=== PATIENT | female | born 1995 | race Caucasian/White ===

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

== ENCOUNTER 2017-03-29 06:42 | Emergency (ER) | payer OTHER ==
[~2017-03-29] VITALS: Ht 162.6 cm; Wt 47.8 kg
[~2017-03-29 06:42] MED LIST: FLUO20CA19 PO
[2017-03-29] MEDS ORDERED: SODIUM CHLORIDE FLUSH 10ML SYR IVF ONE (07:30)
[2017-03-29] MEDS ORDERED: SODIUM CHLORIDE 0.9% 1,000ML IVBOLUS ONE (07:30)
[2017-03-29] MEDS ORDERED: ALBUTEROL/IPRATROPIUM 2.5MG/0.5MG, 3 ML NPPB ONE (07:30)
[2017-03-29] MEDS ORDERED: ALBUTEROL/IPRATROPIUM 2.5MG/0.5MG, 3 ML ONE (07:38)
[2017-03-29 07:44] LABS: HEMATOCRIT 42.1 % (34.6-47.8); WHITE BLOOD COUNT 11.2 x10^3/uL (4.5-13.2)
[2017-03-29 07:56] LABS: BLOOD UREA NITROGEN 6 mg/dL (7-18)
[2017-03-29 07:57] LABS: RAPID INFLUENZA A Negative (Negative); RAPID INFLUENZA B Negative (Negative)
[2017-03-29] MEDS ORDERED: ACETAMINOPHEN 325 MG TABLET ONE (08:13)
[2017-03-29] MEDS ORDERED: ACETAMINOPHEN 325 MG TABLET PO ONE (08:30)
[2017-03-29 09:09] VITALS: BP 94/58
== END 2017-03-29 09:12 | disposition home or self-care (01) ==
LOC: ED 07:15
DX: R06.00 Dyspnea, unspecified (principal); J20.8 Acute bronchitis due to other specified organisms; J45.909 Unspecified asthma, uncomplicated
CPT/HCPCS: 36415; 71020; 80048; 82040; 83605; 84145; 85025; 85379; 87040; 87400; 93005; 94640; 96360; 96361; 99285; J7030; J7620

== ENCOUNTER 2019-12-02 20:45 | Emergency (ER) | payer OTHER ==
[~2019-12-02] VITALS: Ht 162.6 cm; Wt 48.0 kg
[2019-12-02 20:51] VITALS: BP 116/79
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
--- NOTE | 2019-12-02 21:24 | NUR ---
PA AT BEDSIDE FOR ASSESSMENT AT THIS TIME
--- NOTE | 2019-12-02 22:05 | NUR ---
PER DR. SWEET PT NO LONGER ON LEGAL HOLD ABLE TO DC HOME
--- NOTE | 2019-12-02 22:11 | NUR ---
Patient/Caregiver given discharge instructions and they have confirmed that they understand the instructions. Patient ambulatory with steady gait.
== END 2019-12-02 22:13 | disposition home or self-care (01) ==
LOC: ED 22:00
DX: F10.129 Alcohol abuse with intoxication, unspecified (principal); F41.9 Anxiety disorder, unspecified; Y90.9 Presence of alcohol in blood, level not specified
CPT/HCPCS: 99283

== ENCOUNTER 2021-01-16 09:48 | Emergency (ER) | payer OTHER, MEDICAID ==
[~2021-01-16] VITALS: Ht 165.1 cm; Wt 48.3 kg
--- NOTE | 2021-01-16 10:31 | NUR ---
SECY: PT TO ROOM FROM [facility]
--- NOTE | 2021-01-16 10:53 | NUR ---
PT BROUGHT BACK FROM TRIAGE WITH CHIEF COMPLAINT OF ABD PAIN SINCE FRIDAY
[2021-01-16] MEDS ORDERED: SODIUM CHLORIDE 0.9% 1,000ML IVBOLUS ONE (11:30)
[2021-01-16] MEDS ORDERED: ONDANSETRON 2MG/ML, 2ML IVPush ONE (11:30)
[2021-01-16] MEDS ORDERED: SODIUM CHLORIDE FLUSH 10ML SYR IVF ONE (11:30)
[2021-01-16 11:45] LABS: BASOPHILS % (AUTO) 0 % (0-1); EOSINOPHILS % (AUTO) 1 % (1-7); LYMPHOCYTES % (AUTO) 34 % (22-44); MEAN CORPUSCULAR HGB CONC 33.2 g/dL (32.4-35.8); MEAN PLATELET VOLUME 9.4 fL (7.4-10.4); MONOCYTES % (AUTO) 11 % (2-9); NEUTROPHILS % (AUTO) 55 % (42-75); PLATELET COUNT 199 x10^3/uL (130-400); RED BLOOD COUNT 4.77 x10^6/uL (3.82-5.3)
[2021-01-16] MEDS ORDERED: ONDANSETRON 2MG/ML, 2ML ONE (11:47)
[2021-01-16 11:55] LABS: ALANINE AMINOTRANSFERASE 14 U/L (12-78); ALBUMIN 3.9 g/dL (3.4-5.0); ANION GAP 7 mmol/L (5-15); CALCIUM 8.8 mg/dL (8.5-10.1); CHLORIDE 109 mmol/L (98-107)
--- NOTE | 2021-01-16 11:58 | NUR ---
Pt to US
[2021-01-16 12:00] LABS: ALKALINE PHOSPHATASE 80 U/L (45-117); BILIRUBIN,TOTAL 3.4 mg/dL (0.2-1.0); CREATININE 0.73 mg/dL (0.55-1.02); TOTAL PROTEIN 7.3 g/dL (6.4-8.2)
[2021-01-16 12:09] LABS: MICROSCOPIC AUTO
--- NOTE | 2021-01-16 12:57 | NUR ---
PORSHA at [facility] to discuss poc
[2021-01-16] MEDS ORDERED: OMNIPAQUE 350 MG/ML, 100ML BOTTLE ONE (13:54)
--- NOTE | 2021-01-16 14:03 | NUR ---
PT BACK FROM IMAGING, RESTING IN BED
[2021-01-16 14:56] VITALS: BP 114/62
== END 2021-01-16 14:58 | disposition home or self-care (01) ==
LOC: ED 13:54
DX: R10.31 Right lower quadrant pain (principal); R10.32 Left lower quadrant pain; R10.33 Periumbilical pain; R11.0 Nausea; F17.200 Nicotine dependence, unspecified, uncomplicated; J45.909 Unspecified asthma, uncomplicated
CPT/HCPCS: 36415; 74177; 76830; 80053; 81001; 83690; 84703; 85025; 87086; 96360; 99285; J7030; Q9967